=== PATIENT | male | born 2000 | race American Indian/Alaskan Native ===

== ENCOUNTER 2019-05-23 02:46 | Inpatient (IN) | payer SELFPAY ==
[2019-05-23] MEDS ORDERED: ACETAMINOPHEN 650MG/RECT SUPP PR PRN (03:36)
[2019-05-23] MEDS ORDERED: ACETAMINOPHEN 500 MG TAB PO PRN (03:36)
[2019-05-23] MEDS ORDERED: ONDANSETRON 4 MG/2 ML VIAL IV PRN (03:36)
--- NOTE | 2019-05-23 03:37 | P.HP ---
Certification for Inpatient Patient admitted to: Inpatient With expected LOS: >2 Midnights Patient will require the following post-hospital care: None Practitioner: I am a practitioner with admitting privileges, knowledge of patient current condition, hospital course, and medical plan of care. Services: Services provided to patient in accordance with Admission requirements found in Title 42 Section 412.3 of the Code of Federal Regulations Patient History Date of Service: 05/23/19 Primary Care Provider: none Reason for admission: Abdominal pain History of Present Illness: 18-year-old male presented to the [facility] as a transfer from [facility]. Patient reported abdominal pain mainly to the lower quadrant earlier today. The pain was sharp and stabbing like. He would come and go. He rated the pain about a 8/10. It was associated with nausea and vomiting. The pain worsened throughout the day. He went to [facility] to be evaluated further. At [facility], white count was found to be elevated. CT scan revealed mild periportal edema with slight distended gallbladder with either some gallbladder wall thickening or tiny amount of loretta cholecystic fluid suspicious for cholecystitis. Terminal ileum had slight thickened enhancing wall inflammation with slight distended lumen surrounding lymph nodes suspicious for terminal ileitis. The patient was transferred for further treatment and evaluation. Transfer was accepted by hospitalist team and surgery. When I saw the patient, he appeared stable. No significant abdominal pain noted. Patient reported no significant diarrhea. He had poor oral intake. No sick contacts noted. Pain started earlier in the day with no prior history of abdominal complaints. Allergies No Known Allergies Allergy (Verified 05/23/19 03:31) Home medications list reviewed: No Home Medications: NK [No Home Meds] 05/23/19 - Past Medical/Surgical History Has patient received pneumonia vaccine in the past: No Diabetic: No Past Medical History: Patient denies medical history Past Surgical History: Patient denies surgical history Psychosocial/ Personal History: Patient is single. Lives at home. - Family History Family History: Reviewed- Non-Contributory - Social History Smoking Status: Never smoker Alcohol use: No CD- Drugs: No Caffeine use: No Place of Residence: Home Review of Systems General: As per HPI Eyes: Unremarkable ENT: Unremarkable Respiratory: Unremarkable Cardiovascular: Unremarkable Gastrointestinal: Nausea, Vomiting, Abdominal Pain, As per HPI Genitourinary: Unremarkable Musculoskeletal: Unremarkable Integumentary: Unremarkable Neurological: Unremarkable Lymphatics: Unremarkable Physical Examination - Vital Signs Temperature: 97.3 F Blood Pressure: 123/51 Pulse: 73 Respirations: 16 Pulse Ox (%): 99 - Physical Exam General: Alert, In no apparent distress, Oriented x3, Cooperative HEENT: Atraumatic, Normocephalic, PERRLA, Other (Dry mucous membranes) Neck: Supple, No Thyromegaly Respiratory: Clear to auscultation bilaterally, Normal air movement Cardiovascular: Normal pulses, Regular rate/rhythm Gastrointestinal: Hypoactive, Soft and benign, Non-distended, No masses, No rebound, No guarding, Tenderness (Minimal pain to the lower abdomen. Pain greater on the right side than on the left.) Integumentary: Other (Dry skin noted) Neurological: Normal speech, Normal strength at 5/5 x4 extr, Normal tone, Normal affect Assessment and Plan - Plan Impression: Lower abdominal pain, right greater than left, with nausea and vomiting secondary to terminal ileitis verses cholecystitis Leukocytosis secondary to above Plan: Patient admitted for further evaluation and treatment. Will start IV fluids. Will also start IV Cipro and Flagyl. Will provide medication for nausea and pain. Will recheck lab including CBC, CMP, lipase, pro calcitonin and lactic acid. Will obtain abdominal ultrasound to further evaluate the abdominal complaints. Surgery is aware of the patient and plans to see the patient early this morning. Will keep the patient NPO. Will continue to monitor serial abdominal evaluations. Suspect terminal ileitis at this time. Will continue to monitor closely. Will transfer care to the daytime hospitalist in the morning. Discharge Plan: Home Plan to discharge in: 72 Hours - Advance Directives Does patient have a Living Will: No Does patient have a Durable POA for Healthcare: No - Code Status/Comfort Care Code Status Assessed: Yes (Patient is full code) Time Spent Managing Pts Care (In Minutes): 55
[2019-05-23] MEDS: NA CHLORIDE 0.9% 1,000 ML IV SCH ×3 (04:12→21:12)
[2019-05-23 04:20] LABS: Absolute Lymphocytes (CBC) 0.7 K/uL (0.7-4.9); Basophils % 0.1 % (0-1.3); Hematocrit 40.1 % (39.6-49.0); Lymphocytes % 3.8 % (15.3-44.8); MPV 8.4 fL (7.6-11.3); RBC Red Blood Cell Count 4.58 M/uL (4.33-5.43)
[2019-05-23 04:36] LABS: ALT/SGPT 13 U/L (12-78); AST/SGOT 8 U/L (15-37); Albumin 4.2 g/dL (3.4-5.0); Alkaline Phosphatase 64 U/L (45-117); BUN Blood Urea Nitrogen 14 mg/dL (7-18); Bicarbonate 29 mmol/L (21-32); Bilirubin Total 1.5 mg/dL (0.2-1.0); Glucose Level 109 mg/dL (74-106); Lipase 55 U/L (73-393); Magnesium 2.1 mg/dL (1.8-2.4); Potassium 3.8 mmol/L (3.5-5.1); Protein, Total 7.3 g/dL (6.4-8.2); Sodium Level 139 mmol/L (136-145)
[2019-05-23 05:01] LABS: Blood Morphology Comment NOT SEEN (NOT SEEN); Platelet Estimate ADEQ
[2019-05-23] MEDS: METRONIDAZOLE 500mg IVPB 500 MG/100 ML BAG IV SCH ×2 (08:00→16:30)
[2019-05-23] MEDS: CIPROFLOXACIN 400mg IV 400 MG/200 ML BAG IV SCH ×2 (08:01→21:11)
[2019-05-23] MEDS: ENOXAPARIN 40 MG/0.4 ML SQ SCH (08:01)
[2019-05-23] MEDS: FAMOTIDINE 20 MG/2 ML VIAL IV SCH ×2 (08:16→21:11)
[2019-05-23 08:57] LABS: Urine Appearance CLEAR; Urine Bilirubin NEGATIVE (NEG); Urine Blood NEGATIVE (NEG); Urine Color YELLOW; Urine Glucose NEGATIVE (NEG); Urine Protein NEGATIVE (NEG); Urine Specific Gravity 1.025 (1.005-1.030); Urine pH 6.5 (5.0-7.0)
[2019-05-23 09:36] LABS: Urine Bacteria <20 /HPF (NONE SEEN); Urine Culture Reflex Order NOT NEEDED; Urine RBC <5 /HPF (NONE SEEN)
--- NOTE | 2019-05-23 12:58 | RAD REPORT ---
EXAM DESCRIPTION: MRICholangiogram05/23/2019 12:30 pm CLINICAL HISTORY: Abdominal pain vomiting COMPARISON: May 23, 2019 ultrasound TECHNIQUE: Magnetic resonance cholangiogram was performed. 3D MIP reconstruction performed FINDINGS: A filling defect within the gallbladder is not seen. The gallbladder wall does not appear thickened. The biliary tree is normal caliber without a filling defect. The pancreatic duct appears unremarkable IMPRESSION: No significant abnormality is displayed
--- NOTE | 2019-05-23 13:03 | RAD REPORT ---
EXAM DESCRIPTION: US - Abdomen Exam Complete - 05/23/2019 7:43 am CLINICAL HISTORY: Abdominal pain COMPARISON: none FINDINGS: The liver has a normal echotexture. A gallstone is not seen. The gallbladder wall is not thickened. The biliary tree is normal caliber. S mall amount of gallbladder sludge The pancreas was not well visualized secondary overlying bowel gas but appears grossly normal. The right kidney measures 11 centimeters with a normal echotexture. The left kidney measures 11 centimeters with a normal echotexture. The spleen measures 11 centimeters. The abdominal aorta and inferior vena cava appear unremarkable IMPRESSION: Small amount of gallbladder sludge
[2019-05-23] MEDS: MORPHINE 2 MG/ML SYR IV PRN ×2 (13:29→16:32)
[2019-05-23] MEDS ORDERED: KCL 20 MEQ/100 mL IVPB 20 MEQ/100 ML BAG IV SCH (19:59)
[2019-05-24] MEDS: METRONIDAZOLE 500mg IVPB 500 MG/100 ML BAG IV SCH ×2 (00:13→08:04)
[2019-05-24] MEDS: NA CHLORIDE 0.9% 1,000 ML IV SCH ×2 (03:28→12:00)
[2019-05-24 05:56] LABS: Absolute Lymphocytes (CBC) 1.5 K/uL (0.7-4.9); Basophils % 0.8 % (0-1.3); Hematocrit 38.4 % (39.6-49.0); Lymphocytes % 22.7 % (15.3-44.8); MPV 8.7 fL (7.6-11.3); RBC Red Blood Cell Count 4.35 M/uL (4.33-5.43)
[2019-05-24 06:19] LABS: ALT/SGPT 12 U/L (12-78); AST/SGOT 10 U/L (15-37); Albumin 3.4 g/dL (3.4-5.0); Alkaline Phosphatase 52 U/L (45-117); BUN Blood Urea Nitrogen 11 mg/dL (7-18); Bicarbonate 24 mmol/L (21-32); Glucose Level 66 mg/dL (74-106); Potassium 3.6 mmol/L (3.5-5.1); Protein, Total 6.4 g/dL (6.4-8.2); Sodium Level 141 mmol/L (136-145)
[2019-05-24] MEDS: CIPROFLOXACIN 400mg IV 400 MG/200 ML BAG IV SCH (08:04)
[2019-05-24] MEDS: FAMOTIDINE 20 MG/2 ML VIAL IV SCH (08:05)
[2019-05-24] MEDS: ENOXAPARIN 40 MG/0.4 ML SQ SCH (08:05)
[2019-05-24] MEDS ORDERED: POTASSIUM CL SA 10 MEQ TAB PO ONE (09:00)
--- NOTE | 2019-05-24 12:03 | P.PN ---
Subjective Date of Service: 05/24/19 (Hospital is) Primary Care Provider: none Chief Complaint: Abdominal pain Subjective: Improving (Patient is doing better denies any abdominal pain or tenderness) Review of Systems Unremarkable Physical Examination - Vital Signs Temperature: 97.9 F Blood Pressure: 111/45 Pulse: 55 Respirations: 16 Pulse Ox (%): 100 - Physical Exam General: Alert, Oriented x3 Neck: Supple Respiratory: Clear to auscultation bilaterally Cardiovascular: No edema, Regular rate/rhythm Gastrointestinal: Normal bowel sounds, Soft and benign - Studies Laboratory Data (last 24 hrs) 05/24/19 05:25: Sodium 141, Potassium 3.6, BUN 11, Creatinine 0.84, Glucose 66 L , Magnesium 2.0, Total Bilirubin 1.0, AST 10 L, ALT 12, Alkaline Phosphatase 52 05/24/19 05:25: WBC 6.8 D, Hgb 12.8 L, Hct 38.4 L, Plt Count 187 Assessment & Plan - Problems (Diagnosis) (1) Abdominal pain Current Visit: Yes Status: Acute Plan: As 18 years of age admitted with acute onset of abdominal pain apart from gallbladder sludge there was no other acute abnormality patient id go an MRI cholangiogram discuss with Dr. Lomax advance diet possible discharge he had to be ruled out for inflammatory by advance his diet today will discharge tomorrow on levofloxacin and Flagyl Qualifiers: Abdominal location: generalized Qualified Code(s): R10.84 - Generalized abdominal pain
[2019-05-24] MEDS ORDERED: metroNIDAZOLE 500 MG TABLET PO SCH (14:00)
[2019-05-25] MEDS ORDERED: levoFLOXacin 500 MG TAB PO SCH (09:00)
--- NOTE | 2019-05-25 10:15 | P.DS ---
Admission Date: 05/23/19 Discharge Date: 05/25/19 Primary Care Provider: none Disposition: ROUTINE DISCHARGE Reason for Admission: Abdominal pain Consultations: Dr. Lomax - Problems (1) Abdominal pain Status: Acute Qualifiers: Abdominal location: generalized Qualified Code(s): R10.84 - Generalized abdominal pain Brief History of Present Illness: Patient is 18 years of age admitted with acute onset of abdominal pain Hospital Course: Patient did well was seen by Dr. Lomax that was some gallbladder sludge please see progress note from today discuss with Dr. Lomax in evaluate him as an outpatient regarding his gallbladder probably has inflammatory bowel disease and was advised to start him on some antibiotics and follow up with GI at the time of discharge he was doing well alert oriented responsive cooperative vital signs all stable chest clear cardiovascular system os sounds normal abdomen is soft no rebound guarding or tenderness vital signs all stable patient did have a in MRI cholangiogram Vital Signs/Physical Exam: Temp Pulse Resp BP Pulse Ox 97.9 F 55 16 111/45 L 100 05/24/19 12:05 05/24/19 12:05 05/24/19 12:05 05/24/19 12:05 05/24/19 12:05 Laboratory Data at Discharge: WBC 6.8 K/uL (4.3-10.9) D 05/24/19 05:25 Hgb 12.8 g/dL (13.6-17.9) L 05/24/19 05:25 Hct 38.4 % (39.6-49.0) L 05/24/19 05:25 Plt Count 187 K/uL (152-406) 05/24/19 05:25 Sodium 141 mmol/L (136-145) 05/24/19 05:25 Potassium 3.6 mmol/L (3.5-5.1) 05/24/19 05:25 BUN 11 mg/dL (7-18) 05/24/19 05:25 Creatinine 0.84 mg/dL (0.55-1.3) 05/24/19 05:25 Glucose 66 mg/dL (74-106) L 05/24/19 05:25 Magnesium 2.0 mg/dL (1.8-2.4) 05/24/19 05:25 Total Bilirubin 1.0 mg/dL (0.2-1.0) 05/24/19 05:25 AST 10 U/L (15-37) L 05/24/19 05:25 ALT 12 U/L (12-78) 05/24/19 05:25 Alkaline Phosphatase 52 U/L (45-117) 05/24/19 05:25 Lipase 55 U/L (73-393) L 05/23/19 04:06 Home Medications: levoFLOXacin [Levaquin] 500 mg PO DAILY 7 Days #7 tab 05/24/19 metroNIDAZOLE [Flagyl] 500 mg PO Q8H 7 Days #21 tablet 05/24/19 New Medications: levoFLOXacin [Levaquin] 500 mg PO DAILY 7 Days #7 tab metroNIDAZOLE [Flagyl] 500 mg PO Q8H 7 Days #21 tablet
== END 2019-05-24 14:30 | disposition home or self-care (01) | DRG 392 ==
LOC: 4TH 02:54
PROVIDERS: ADMIT Family Medicine; ATTEND Internal Medicine Sleep Medicine
DX: R10.84 Generalized abdominal pain (principal); D72.829 Elevated white blood cell count, unspecified; K82.8 Other specified diseases of gallbladder; K63.89 Other specified diseases of intestine
CPT/HCPCS: 36415; 74181; 76700; 80053; 81001; 83605; 83690; 83735; 84145; 85025; 87040; J0744; J1650; J2270; J7030